=== PATIENT | female | born 1940 | race Caucasian/White ===

== ENCOUNTER 2024-02-09 18:30 | Emergency (ER) | payer MEDICARE, OTHER ==
[~2024-02-09] VITALS: Ht 162.6 cm; Wt 55.8 kg
[2024-02-09] MEDS ORDERED: methylPREDNISolone SOD SUCC 125 MG/2ML VIAL ONE (20:08)
[2024-02-09] MEDS: methylPREDNISolone SOD SUCC 125 MG/2ML VIAL IV ONE (20:18)
[2024-02-09 20:30] LABS: BASOPHILS % (AUTO) 0.6 % (0.0-2.0); EOSINOPHILS # (AUTO) 0.2 K/uL (0.0-0.7); EOSINOPHILS % (AUTO) 2.6 % (0.0-6.0); HEMATOCRIT 37 % (33-45); HEMOGLOBIN 12.2 g/dL (11.5-14.8); LYMPHOCYTES # (AUTO) 1.4 K/uL (0.8-4.8); LYMPHOCYTES % (AUTO) 23.3 % (20.0-44.0); MEAN CORPUSCULAR HEMOGLOBIN 28 PG (26.0-33.0); MEAN CORPUSCULAR HGB CONC 33 g/dl (31.0-36.0); MEAN CORPUSCULAR VOLUME 87 fL (82-100); MONOCYTES # (AUTO) 0.5 K/uL (0.1-1.30); MONOCYTES % (AUTO) 7.9 % (2.0-12.0); NEUTROPHILS # (AUTO) 3.9 K/uL (1.8-8.9); NEUTROPHILS % (AUTO) 65.6 % (43.0-81.0); PLATELET COUNT (AUTO) 169 K/uL (150-450); RED BLOOD CELL COUNT(AUTO) 4.29 MIL/uL (4.0-5.2); RED CELL DISTRIBUTION WIDTH 14.6 % (11.5-15.0)
[2024-02-09 20:41] LABS: CARBON DIOXIDE 33 mmol/L (21-32); CHLORIDE 101 mmol/L (98-107); CREATININE 0.9 mg/dL (0.6-1.3); GLUCOSE 126 mg/dL (74-106); SODIUM SERUM 138 mmol/L (136-145); UREA NITROGEN, BLOOD 12 mg/dL (7-18)
[2024-02-09] MEDS: ALBUTEROL FS 2.5 MG/3 ML VIAL.NEB NEB ONE (20:41)
[2024-02-09] MEDS ORDERED: ALBUTEROL FS 2.5 MG/3 ML VIAL.NEB ONE (20:42)
[2024-02-09 20:46] VITALS: O2SAT 95
[2024-02-09 20:48] LABS: LACTIC ACID 1.5 mmol/L (0.4-2.0)
[2024-02-09 20:51] VITALS: O2SAT 93
[2024-02-09 21:23] VITALS: O2SAT 95
[2024-02-09] MEDS ORDERED: AZIT250T13 PO (22:30)
[2024-02-09] MEDS ORDERED: PRED20TA PO (22:30)
[2024-02-09 23:07] VITALS: BP 121/78; TEMP 98; O2SAT 96
== END 2024-02-09 23:08 | disposition home or self-care (01) ==
LOC: ER 18:33
DX: J44.1 Chronic obstructive pulmonary disease with (acute) exacerbation (principal); J18.9 Pneumonia, unspecified organism; R06.82 Tachypnea, not elsewhere classified; I10 Essential (primary) hypertension; Z88.0 Allergy status to penicillin; Z60.2 Problems related to living alone
CPT/HCPCS: 99285; 96374; 71045; 93005; 85025; 80048; 83605; 36415; 94640; J2919